=== PATIENT | male | born 1955 | race Two or more races ===

== ENCOUNTER 2017-02-15 12:30 | Outpatient (CLI) | payer MEDICARE, MEDICAID | END 2017-02-15 23:59 | disposition home or self-care (01) | LOC: WOU 12:30 | PROVIDERS: ATTEND Surgery | DX: E11.42 Type 2 diabetes mellitus with diabetic polyneuropathy (principal); Z87.891 Personal history of nicotine dependence; E03.9 Hypothyroidism, unspecified; I10 Essential (primary) hypertension; Z79.4 Long term (current) use of insulin; Z79.02 Long term (current) use of antithrombotics/antiplatelets; R23.8 Other skin changes; E66.9 Obesity, unspecified; Z68.41 Body mass index [BMI] 40.0-44.9, adult | CPT/HCPCS: G0463 ==

== ENCOUNTER 2017-02-16 14:30 | Outpatient (CLI) | payer MEDICARE, MEDICAID | END 2017-02-16 23:59 | disposition home or self-care (01) | LOC: WOU 14:30 | PROVIDERS: ATTEND Surgery | DX: R60.0 Localized edema (principal); I70.203 Unspecified atherosclerosis of native arteries of extremities, bilateral legs | CPT/HCPCS: 93970-TC ==

== ENCOUNTER 2017-03-11 10:30 | Outpatient (CLI) | payer MEDICARE, MEDICAID | END 2017-03-11 23:59 | disposition home or self-care (01) | LOC: WOU 10:30 | PROVIDERS: ATTEND Podiatrist Foot & Ankle Surgery | DX: I87.2 Venous insufficiency (chronic) (peripheral) (principal); R60.0 Localized edema; I10 Essential (primary) hypertension; E03.9 Hypothyroidism, unspecified; E78.2 Mixed hyperlipidemia; E13.40 Other specified diabetes mellitus with diabetic neuropathy, unspecified | CPT/HCPCS: G0463 ==

== ENCOUNTER 2017-04-19 11:30 | Outpatient (CLI) | payer MEDICARE, MEDICAID | END 2017-04-19 23:59 | disposition home or self-care (01) | LOC: WOU 11:30 | PROVIDERS: ATTEND Podiatrist Foot & Ankle Surgery | DX: I87.313 Chronic venous hypertension (idiopathic) with ulcer of bilateral lower extremity (principal); L97.822 Non-pressure chronic ulcer of other part of left lower leg with fat layer exposed; L97.812 Non-pressure chronic ulcer of other part of right lower leg with fat layer exposed; Z86.73 Personal history of transient ischemic attack (TIA), and cerebral infarction without residual deficits; I10 Essential (primary) hypertension; E11.40 Type 2 diabetes mellitus with diabetic neuropathy, unspecified; Z87.891 Personal history of nicotine dependence; E03.9 Hypothyroidism, unspecified; Z79.4 Long term (current) use of insulin; Z79.02 Long term (current) use of antithrombotics/antiplatelets; R60.0 Localized edema | CPT/HCPCS: 11042; A6402; A6452 ==

== ENCOUNTER 2017-04-26 12:00 | Outpatient (CLI) | payer MEDICARE, MEDICAID | END 2017-04-26 23:59 | disposition home or self-care (01) | LOC: WOU 12:00 | PROVIDERS: ATTEND Surgery | DX: I87.312 Chronic venous hypertension (idiopathic) with ulcer of left lower extremity (principal); L97.822 Non-pressure chronic ulcer of other part of left lower leg with fat layer exposed; R60.0 Localized edema; E78.5 Hyperlipidemia, unspecified; E11.39 Type 2 diabetes mellitus with other diabetic ophthalmic complication; Z86.73 Personal history of transient ischemic attack (TIA), and cerebral infarction without residual deficits; E11.40 Type 2 diabetes mellitus with diabetic neuropathy, unspecified; Z79.4 Long term (current) use of insulin; Z79.02 Long term (current) use of antithrombotics/antiplatelets; Z79.899 Other long term (current) drug therapy | CPT/HCPCS: 11042; A6402; A6452 ==

== ENCOUNTER 2017-05-06 12:15 | Outpatient (CLI) | payer MEDICARE, MEDICAID | END 2017-05-06 23:59 | disposition home or self-care (01) | LOC: WOU 12:15 | PROVIDERS: ATTEND Podiatrist Foot & Ankle Surgery | DX: I87.312 Chronic venous hypertension (idiopathic) with ulcer of left lower extremity (principal); L97.822 Non-pressure chronic ulcer of other part of left lower leg with fat layer exposed; E11.9 Type 2 diabetes mellitus without complications; R60.0 Localized edema; E03.9 Hypothyroidism, unspecified; I10 Essential (primary) hypertension; E78.5 Hyperlipidemia, unspecified; Z79.84 Long term (current) use of oral hypoglycemic drugs; Z79.02 Long term (current) use of antithrombotics/antiplatelets | CPT/HCPCS: 11042; A6402; A6452 ==

== ENCOUNTER 2017-06-03 12:56 | Outpatient (CLI) | payer MEDICARE, MEDICAID | END 2017-06-03 23:59 | disposition home health service (06) | LOC: WOU 12:56 | PROVIDERS: ATTEND Podiatrist Foot & Ankle Surgery | DX: I87.2 Venous insufficiency (chronic) (peripheral) (principal); R60.0 Localized edema; L60.3 Nail dystrophy; E11.40 Type 2 diabetes mellitus with diabetic neuropathy, unspecified; E78.5 Hyperlipidemia, unspecified; I10 Essential (primary) hypertension; Z86.73 Personal history of transient ischemic attack (TIA), and cerebral infarction without residual deficits; E03.9 Hypothyroidism, unspecified; Z79.4 Long term (current) use of insulin; Z79.899 Other long term (current) drug therapy; Z87.891 Personal history of nicotine dependence | CPT/HCPCS: G0463 ==

== ENCOUNTER 2017-06-19 16:06 | Inpatient (IN) | payer MEDICARE, MEDICAID ==
[~2017-06-19] VITALS: Ht 172.7 cm; Wt 115.5 kg
--- NOTE | 2017-06-19 16:22 | NUR ---
pt rec'd to er via ems pt fell rt [facility] sbrasions accu ck 121 etoh depression 92% ra n/c 2l 99%
--- NOTE | 2017-06-19 16:45 | NUR ---
iv started rt hand 20g ivp labs and cultures drawn sent to lab asa 325 mg po given per md order
[2017-06-19] MEDS ORDERED: ASPIRIN 325 MG TABLET ONE (16:46)
[2017-06-19 16:47] LABS: BASOPHILS % (AUTO) 0.7 % (0.0-2.0); HEMATOCRIT 27 % (39-51); HEMOGLOBIN 9.3 g/dL (13.5-17.5); LYMPHOCYTES # (AUTO) 0.6 /CMM (0.8-4.8); LYMPHOCYTES % (AUTO) 13.2 % (20.0-44.0); MEAN CORPUSCULAR HGB CONC 35 g/dl (31.0-36.0); MEAN CORPUSCULAR VOLUME 89 fL (80-96); MONOCYTES # (AUTO) 0.3 /CMM (0.1-1.30); MONOCYTES % (AUTO) 5.9 % (2.0-12.0); NEUTROPHILS # (AUTO) 3.8 /CMM (1.8-8.9); NEUTROPHILS % (AUTO) 78.2 % (43.0-81.0); PLATELET COUNT (AUTO) 252 /CMM (150-450); RDW COEFFICIENT OF VARIATION 14.7 (11.5-15.0); RED BLOOD CELL COUNT(AUTO) 2.99 MIL/uL (4.5-6.0); WHITE BLOOD COUNT (AUTO) 4.8 K/uL (4.3-11.0)
[2017-06-19 16:58] LABS: CALCIUM, SERUM 8.3 mg/dL (8.5-10.1); CREATININE 2.2 mg/dL (0.6-1.3); POTASSIUM 4.9 mmol/L (3.5-5.1)
[2017-06-19] MEDS ORDERED: ASPIRIN 325 MG TABLET PO ONE (17:00)
[2017-06-19 17:01] LABS: INR 1.16 (0.85-1.15)
[2017-06-19 17:05] LABS: TROPONIN I 0.143 ng/mL (0.00-0.056)
[2017-06-19 17:13] LABS: ALBUMIN 3.6 g/dL (3.4-5.0); BILIRUBIN,DIRECT 0.3 mg/dL (0.0-0.2); BILIRUBIN,TOTAL 0.6 mg/dL (0.2-1.0); TOTAL PROTEIN, SERUM 7.5 g/dL (6.4-8.2)
--- NOTE | 2017-06-19 17:31 | NUR ---
CALLED NURSING SUP. FOR TELE BED
[2017-06-19] MEDS ORDERED: METF-440 PO (17:48)
[2017-06-19] MEDS ORDERED: FERR325T24 PO (17:48)
[2017-06-19] MEDS ORDERED: NITR0.4T48 SL (17:48)
[2017-06-19] MEDS ORDERED: TRAZ-214 PO (17:48)
[2017-06-19] MEDS ORDERED: FENO145T35 PO (17:48)
[2017-06-19] MEDS ORDERED: LEVO75TA7 PO (17:48)
[2017-06-19] MEDS ORDERED: FURO40TA5 PO (17:48)
[2017-06-19] MEDS ORDERED: CLOP75TA15 PO (17:48)
[2017-06-19] MEDS ORDERED: ATOR40TA PO (17:48)
[2017-06-19] MEDS ORDERED: ALBU18HF2 IH (17:48)
[2017-06-19] MEDS ORDERED: INSU100V7 SQ (17:48)
[2017-06-19] MEDS ORDERED: CARV12.52 PO (17:48)
[2017-06-19] MEDS ORDERED: HYDR100T27 PO (17:48)
[2017-06-19] MEDS ORDERED: FOLI0.8T2 PO (17:48)
[2017-06-19] MEDS ORDERED: BLOO-668 IN (17:48)
[2017-06-19] MEDS ORDERED: AMLO10TA6 PO (17:48)
[2017-06-19] MEDS ORDERED: ALLO100T PO (17:48)
--- NOTE | 2017-06-19 17:55 | NUR ---
TELE 310-1
--- NOTE | 2017-06-19 18:16 | NUR ---
PT SLEEPING RESP EVEN UNLABORED VSS CONT TO MONITOR CALLED REPROT TO FLOOR [place] . PT STABLE FOR TRANSFER VSS
[2017-06-19] MEDS ORDERED: FUROSEMIDE 40 MG/4 ML VIAL IV ONE (18:30)
[2017-06-19] MEDS ORDERED: *INSULIN REGULAR(HUMULIN R)HUM 100 UNIT/ML VIAL SQ PRN (18:30)
[2017-06-19] MEDS ORDERED: MAGNESIUM HYDROXIDE 30 ML UDC PO PRN (18:30)
[2017-06-19] MEDS ORDERED: DEXTROSE 50%-WATER 50 ML DISP.SYRIN IV PRN (18:30)
[2017-06-19] MEDS ORDERED: LORAZEPAM 0.5 MG TABLET PO PRN (18:30)
[2017-06-19] MEDS ORDERED: HYDROCODONE/APAP 5/325MG 1 EACH TABLET PO PRN (18:30)
[2017-06-19] MEDS ORDERED: ZOLPIDEM TARTRATE 5 MG TABLET PO PRN (18:30)
[2017-06-19] MEDS ORDERED: Z GUARD REMEDY 2 OZ OINT TP PRN (18:30)
[2017-06-19] MEDS ORDERED: MAG HYDROX/AL HYDROX/SIMETH 30 ML UDC PO PRN (18:30)
[2017-06-19] MEDS ORDERED: ONDANSETRON HCL/PF 4 MG/2 ML VIAL IVP PRN (18:30)
[2017-06-19] MEDS ORDERED: ACETAMINOPHEN 325 MG TABLET PO PRN (18:30)
[2017-06-19] MEDS: hydrALAZINE HCL 50 MG TABLET PO SCH (19:00)
[2017-06-19 19:18] VITALS: BP 134/78
[2017-06-19 20:00] VITALS: BP 139/75
--- NOTE | 2017-06-19 20:00 | NUR ---
TELE/RN OPENING NOTES PT RECEIVED AWAKE, A/OX3. ON ROOM AIR, BREATHING EVEN AND UNLABORED. DENIES SOB OR CHEST PAIN AT THIS TIME. IV TO RIGHT HAND PATENT AND INTACT. ORIENTED PT TO ROOM AND CALL LIGHT. BED IN LOW/LOCKED POSITION WITH CALL LIGHT IN REACH. SIDE RAILS UPX2. WILL CONTINUE TO MONITOR
[2017-06-19] MEDS ORDERED: FUROSEMIDE 40 MG/4 ML VIAL ONE (20:51)
[2017-06-19] MEDS: ATORVASTATIN 40 MG TABLET PO SCH (20:56)
[2017-06-19] MEDS: NITROGLYCERIN PACKET 1 GM PACKET TOP SCH (20:57)
[2017-06-19] MEDS ORDERED: ENOXAPARIN SODIUM 40 MG/0.4 ML DISP.SYRIN SQ SCH (21:00)
--- NOTE | 2017-06-19 21:00 | NUR ---
TELE/RN NOTES PT WITH PEPPER SPRAY AND TASER/FLASHLIGHT. PLACED IN PLASTIC BAG WITH PT'S STICKER, AND LOCKED IN THE CHARGE NURSE'S SAFE. ADDED TO BELONGINGS LIST. PER DAY SHIFT RN, $325 AND VISA CARD SEND DOWN TO NURSING MINE ENVIRONMENTAL ENGINEER SAFE.
[2017-06-19] MEDS: BLOOD SUGAR DIAGNOSTIC 1 EACH STRIP VI SCH (22:19)
[2017-06-20] VITALS: BP 121/58
--- NOTE | 2017-06-20 00:13 | NUR ---
TELE/RN NOTES NOTIFIED DR. ROGERS ABOUT 2ND TROPONIN RESULTS OF 0.146 TRENDING UP FROM 0.143. MADE AWARE THAT PT IS ON PLAVIX 75MG DAILY AND LOVENOX 40MG Q24H. DENIES CP, NSR/SB ON THE MONITOR. NO NEW ORDERS AT THIS TIME. DR. SUE VERONICAAY TO ORDER LIPID PANEL WITH AM LABS PER CORE MEASURE PROTOCOL.
[2017-06-20 04:00] VITALS: BP 135/66
[2017-06-20] MEDS: NITROGLYCERIN PACKET 1 GM PACKET TOP SCH (05:56)
[2017-06-20 06:45] LABS: CALCIUM, SERUM 7.8 mg/dL (8.5-10.1); CREATININE 2.1 mg/dL (0.6-1.3); MAGNESIUM 2.9 mg/dL (1.8-2.4); PHOSPHORUS 4.2 mg/dL (2.5-4.9); POTASSIUM 4.7 mmol/L (3.5-5.1)
--- NOTE | 2017-06-20 07:00 | NUR ---
TELE OPENING NOTES. PT RECEIVED A&0X3, AWAKE AND RESTING IN BED. PT TELE: SB 60. PT NPO R/T: RV BY CARDIOLOGY. PT WITH O2 VIA NC AT 2LPM, SAO2 WNL AT 97%. PT DENIES SOB OR RESP DISTRESS. PT DENIES PAIN. PT WITH IVC AT R HAND G#2O INTACT AND SALINE FLUSH PATENT, PT BED IN LOWEST LOCKED POSITION WITH HANDRAILSX2 AND CALL ROCHE WITHIN REACH. PT BRIEFED ON TODAY'S POC AND IS WITHOUT CONCERN OR COMPLAINT AT THIS TIME.
[2017-06-20] MEDS: BLOOD SUGAR DIAGNOSTIC 1 EACH STRIP VI SCH ×4 (07:03→21:18)
--- NOTE | 2017-06-20 07:30 | NUR ---
BLOCK MACHINE OPERATOR NOTES. PT OK'D TO CONT. DIET BY CARDIOLOGY MD KHAN.
--- NOTE | 2017-06-20 07:32 | NUR ---
TELE/RN CLOSING NOTES PT RESTING COMFORTABLY IN BED. A/OX3. ON/OFF NC 2L. BREATHING EVEN AND UNLABORED. DENIES SOB OR CHEST PAIN AT THIS TIME. NO N/V NOTED. IV TO RIGHT HAND PATENT AND INTACT. NO SIGNIFICANT CHANGES OVERNIGHT, ALL NEEDS MET. KEPT PT COMFORTABLE DURING SHIFT. PT CURRENTLY NPO FOR CARDIO EVAL. PT AWARE AND VERBALIZES UNDERSTANDING. BED REMAINS IN LOW/LOCKED POSITION WITH CALL LIGHT IN REACH. SIDE RAILS UPX2. ENDORSED TO DAY SHIFT LOPEZ MARC. Addendum: 06/20/17 at 0735 by BARRINGTON KESSLER RN ON TELE MONITOR SHOWING SINUS RHYTHM WITH HR 60 Addendum: 06/20/17 at 0741 by BARRINGTON KESSLER RN SADIE DE LA CRUZ ([facility])= [phone]
[2017-06-20 07:51] LABS: HEMATOCRIT 26 % (39-51); HEMOGLOBIN 8.8 g/dL (13.5-17.5); MEAN CORPUSCULAR VOLUME 90 fL (80-96); RED BLOOD CELL COUNT(AUTO) 2.91 MIL/uL (4.5-6.0); WHITE BLOOD COUNT (AUTO) 4.1 K/uL (4.3-11.0)
[2017-06-20 07:52] LABS: MEAN CORPUSCULAR HGB CONC 34 g/dl (31.0-36.0); NEUTROPHILS % (AUTO) 72.7 % (43.0-81.0); PLATELET COUNT (AUTO) 193 /CMM (150-450); RDW COEFFICIENT OF VARIATION 15.4 (11.5-15.0)
[2017-06-20 07:53] LABS: BASOPHILS % (AUTO) 0.4 % (0.0-2.0); EOSINOPHILS % (AUTO) 2.1 % (0.0-6.0); LYMPHOCYTES # (AUTO) 0.6 /CMM (0.8-4.8); LYMPHOCYTES % (AUTO) 15.9 % (20.0-44.0); MONOCYTES # (AUTO) 0.4 /CMM (0.1-1.30); MONOCYTES % (AUTO) 8.9 % (2.0-12.0); NEUTROPHILS # (AUTO) 2.9 /CMM (1.8-8.9)
[2017-06-20 08:00] VITALS: BP 140/69
[2017-06-20 08:30] LABS: THYROID STIMULATING HORMONE 2.605 uIU/mL (0.358-3.74)
[2017-06-20] MEDS: LEVOTHYROXINE SODIUM 75 MCG TABLET PO SCH (08:44)
[2017-06-20] MEDS: PANTOPRAZOLE 40 MG TABLET.DR PO SCH (08:45)
[2017-06-20] MEDS: CLOPIDOGREL BISULFATE 75 MG TABLET PO SCH (08:46)
[2017-06-20] MEDS: ALLOPURINOL 100 MG TABLET PO SCH (08:47)
[2017-06-20] MEDS: FENOFIBRATE NANOCRYS (145 MG) 145 MG TABLET PO SCH (08:48)
[2017-06-20] MEDS: THIAMINE HCL 100 MG TABLET PO SCH (08:48)
[2017-06-20] MEDS: ASPIRIN 325 MG TABLET PO SCH (08:48)
[2017-06-20] MEDS: hydrALAZINE HCL 50 MG TABLET PO SCH ×2 (08:48→16:59)
[2017-06-20] MEDS: VIT B CMPLX 3/FA/VIT C/BIOTIN 1 TAB TABLET PO SCH (08:48)
[2017-06-20] MEDS: ISOSORBIDE DINITRATE (20MG) 20 MG TABLET PO SCH ×2 (08:49→17:01)
[2017-06-20] MEDS: CARVEDILOL 12.5 MG TABLET PO SCH ×2 (08:49→17:00)
[2017-06-20] MEDS: HEPARIN SODIUM, PORCINE 5000 UNITS/1 ML VIAL SQ SCH ×2 (08:51→21:18)
[2017-06-20] MEDS ORDERED: FERROUS SULFATE (325 MG) 325 MG/TAB TABLET PO SCH (09:00)
[2017-06-20] MEDS ORDERED: AMLODIPINE BESYLATE 10 MG TABLET PO SCH (09:00)
[2017-06-20] MEDS: INSULIN REGULAR, HUMAN 100 UNIT/ML 3 ML VIAL SQ PRN ×2 (12:34→17:07)
[2017-06-20 16:00] VITALS: BP 126/59
--- NOTE | 2017-06-20 16:00 | NUR ---
LAUNDRY BAG PUNCH OPERATOR NOTES. PT NOTES ADDED TO CHART FROM PREVIOUS HOSP. STAY.
[2017-06-20] MEDS: ATORVASTATIN 40 MG TABLET PO SCH (16:58)
--- NOTE | 2017-06-20 18:23 | NUR ---
TELE CLOSING NOTES. PT A&0X3, PT OOB IN CHAIR WITH FAMILY AT BEDSIDE. PT TELE: SB 66. PT TOLERATING ROOM AIR WITHOUT SOB OR RESP DISTRESS AND DENIES DENIES PAIN. PT IVC AT R HAND G#2O INTACT AND SL. PT BED IN LOWEST LOCKED POSITION WITH HANDRAILSX2 AND CALL ROCHE WITHIN REACH. ALL DAY NURSE DUTIES ATTENDED TO AND PT AND IS WITHOUT CONCERN OR COMPLAINT AT THIS TIME. PT TO BE NPO POST MIDNIGHT TONIGHT R/ NA SCAN, CONSENT SIGNED. WILL ENDORSE TO NIGHT NURSE AT BEDSIDE FOR MARC.
--- NOTE | 2017-06-20 19:40 | NUR ---
PIPE MACHINE OPERATOR INITIAL NOTE PT IS IN BED SLEEPING, EASILY AROUSED. TELE MONITOR SHOWS SR 69. NO SIGNS OF SOB OR DISTRESS, BREATHING EVENLY AND UNLABORED ON RA. DENIES PAIN AT THIS TIME. IV ACCESS IS INTACT AND PATENT. BILATERAL LOWER EXTREMITY WEEPING EDEMA NOTED. BED IS IN LOW AND LOCKED POSITION, CALL LIGHT WITHIN REACH. WILL CONTINUE TO MONITOR PT
[2017-06-20 20:00] VITALS: BP 125/59
[2017-06-21] VITALS: BP 136/64
[2017-06-21 01:54] LABS: APPEARANCE,URINE CLEAR (CLEAR); BILIRUBIN,URINE NEGATIVE (NEGATIVE); BLOOD, URINE TRACE Ery/uL (NEGATIVE); COLOR,URINE YELLOW (YELLOW); KETONES,URINE NEGATIVE (NEGATIVE); LEUKOCYTE ESTERASE ,URINE NEGATIVE (NEGATIVE); NITRITE, URINE NEGATIVE (NEGATIVE); PH,URINE 5.5 (5.0-8.0); PROTEIN,URINE NEGATIVE (NEGATIVE); UGLUCOSE 3+ mg/dL (NEGATIVE); UROBILINOGEN,URINE 0.2 EU/dL (0.2)
[2017-06-21 02:05] LABS: CREATININE, URINE 43.5 MG/DL (30.0-125.0); URINE TOTAL PROTEIN 16.9 mg/dL (0-11.9)
[2017-06-21 02:06] LABS: RBC,URINE 0-2 /HPF (0-2); WBC,URINE 0-2 /HPF (0-3)
[2017-06-21 02:07] LABS: BACTERIA,URINE None seen /HPF (None Seen); SQUAMOUS EPITHELIAL CELL,UR Few /HPF (None Seen)
[2017-06-21 02:21] LABS: EOSINOPHIL,URINE None Seen
[2017-06-21 04:00] VITALS: BP 121/53
[2017-06-21] MEDS: BLOOD SUGAR DIAGNOSTIC 1 EACH STRIP VI SCH ×4 (05:43→21:11)
[2017-06-21 06:29] LABS: BASOPHILS % (AUTO) 0.6 % (0.0-2.0); EOSINOPHILS % (AUTO) 4.2 % (0.0-6.0); HEMATOCRIT 27 % (39-51); HEMOGLOBIN 8.9 g/dL (13.5-17.5); LYMPHOCYTES # (AUTO) 0.7 /CMM (0.8-4.8); LYMPHOCYTES % (AUTO) 13.2 % (20.0-44.0); MEAN CORPUSCULAR HGB CONC 33 g/dl (31.0-36.0); MEAN CORPUSCULAR VOLUME 91 fL (80-96); MONOCYTES # (AUTO) 0.5 /CMM (0.1-1.30); NEUTROPHILS # (AUTO) 3.6 /CMM (1.8-8.9); PLATELET COUNT (AUTO) 206 /CMM (150-450); RDW COEFFICIENT OF VARIATION 15.6 (11.5-15.0); RED BLOOD CELL COUNT(AUTO) 2.97 MIL/uL (4.5-6.0)
--- NOTE | 2017-06-21 06:38 | NUR ---
HULLER OPERATOR CLOSING NOTE PT IS IN BED AWAKE AND ALERT, ABLE TO MAKE NEEDS KNOWN. NPO SINCE MIDNIGHT PENDING LEXISCAN. NO SIGNS OF SOB OR DISTRESS, BREATHING EVENLY AND UNLABORED ON RA. DENIES PAIN AT THIS TIME. BED IS IN LOW AND LOCKED POSITION, CALL LIGHT WITHIN REACH. WILL ENDORSE TO DAYSHIFT.
[2017-06-21 06:47] LABS: ALBUMIN 3.3 g/dL (3.4-5.0); CALCIUM, SERUM 8.3 mg/dL (8.5-10.1); CREATININE 1.9 mg/dL (0.6-1.3); MAGNESIUM 2.9 mg/dL (1.8-2.4); PHOSPHORUS 3.2 mg/dL (2.5-4.9); POTASSIUM 4.7 mmol/L (3.5-5.1); TOTAL PROTEIN, SERUM 7.1 g/dL (6.4-8.2)
[2017-06-21 06:49] LABS: TROPONIN I 0.158 ng/mL (0.00-0.056)
--- NOTE | 2017-06-21 07:20 | NUR ---
TELE/RN OPENING NOTE PATIENT ALERT AND ORIENTED X3. DENIES SOB. RESPIRATION REGULAR AND UNLABORED. DENIES PAIN. PATIENT SR WITH HR 61. PATIENT IN NO APPARENT DISTRESS. RIGHT HAND G 20 PATENT AND SALINE LOCKED. CONTINENT ON BOWEL AND BLADDER. ABDOMEN SOFT AND NON-DISTENDED. PATIENT NPO FOR DIAGNOSIS REASON. BED LOW AND LOCKED. SIDE RAILS UP X2. CALL LIGHT WITHIN REACH. WILL CONTINUE TO MONITOR.
[2017-06-21 08:00] VITALS: BP 128/59
[2017-06-21] MEDS ORDERED: REGADENOSON 0.4 MG/5 ML DISP.SYRIN IVP ONE (09:00)
[2017-06-21] MEDS ORDERED: BUMETANIDE INJ 8 MG in IV NS 0.9% 48 ML IV ONE (09:00)
[2017-06-21] MEDS: FENOFIBRATE NANOCRYS (145 MG) 145 MG TABLET PO SCH (10:57)
[2017-06-21] MEDS: THIAMINE HCL 100 MG TABLET PO SCH (10:57)
[2017-06-21] MEDS: CLOPIDOGREL BISULFATE 75 MG TABLET PO SCH (10:57)
[2017-06-21] MEDS: ALLOPURINOL 100 MG TABLET PO SCH (10:57)
[2017-06-21] MEDS: VIT B CMPLX 3/FA/VIT C/BIOTIN 1 TAB TABLET PO SCH (10:57)
[2017-06-21] MEDS: ASPIRIN 325 MG TABLET PO SCH (10:57)
[2017-06-21] MEDS: LEVOTHYROXINE SODIUM 75 MCG TABLET PO SCH (10:58)
[2017-06-21] MEDS: PANTOPRAZOLE 40 MG TABLET.DR PO SCH (10:58)
[2017-06-21] MEDS: ISOSORBIDE DINITRATE (20MG) 20 MG TABLET PO SCH ×2 (10:59→18:02)
[2017-06-21] MEDS: hydrALAZINE HCL 50 MG TABLET PO SCH ×2 (10:59→18:01)
[2017-06-21] MEDS: CARVEDILOL 12.5 MG TABLET PO SCH ×2 (10:59→18:03)
[2017-06-21] MEDS: HEPARIN SODIUM, PORCINE 5000 UNITS/1 ML VIAL SQ SCH ×2 (11:00→20:01)
--- NOTE | 2017-06-21 11:10 | NUR ---
MS/RN NOTE PATIENT IS BACK FROM STRESS TEST IN STABLE CONDITION. RESPIRATION REGULAR AND UNLABORED. DENIES SOB, DENIES PAIN AT THIS TIME. PATIENT IN NO APPARENT DISTRESS. ALERT AND ORIENTED X3. MORNING MEDICATIONS GIVEN LATE DUE TO PATIENT WAS NPO. NO ADVERSE SIDE EFFECTS NOTED.
[2017-06-21] MEDS: INSULIN REGULAR, HUMAN 100 UNIT/ML 3 ML VIAL SQ PRN (12:26)
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
[2017-06-21 16:00] VITALS: BP 139/79
[2017-06-21] MEDS: ATORVASTATIN 40 MG TABLET PO SCH (18:00)
--- NOTE | 2017-06-21 18:06 | NUR ---
MS/RN CLOSING NOTE PATIENT ALERT AND ORIENTED X4. DENIES SOB. RESPIRATION REGULAR AND UNLABORED. DENIES PAIN. PATIENT IN NO APPARENT DISTRESS. RIGHT HAND G 20 PATENT AND SALINE LOCKED. BED LOW AND LOCKED. SIDE RAILS UP X2. CALL LIGHT WITHIN REACH. WILL ENDORSE TO SPEECH PATHOLOGY TEACHER.
--- NOTE | 2017-06-21 19:45 | NUR ---
MS RN INITIAL NOTE PT IS AWAKE AND ALERT IN BED, ABLE TO MAKE NEEDS KNOWN. NO SIGNS OF SOB OR DISTRESS, BREATHING EVENLY AND UNLABORED ON RA. DENIES PAIN AT THIS TIME. IV ACCESS IS INTACT AND PATENT. BILATERAL LOWER EXTREMITY WEEPING EDEMA NOTED. BED IS IN LOW AND LOCKED POSITION, CALL LIGHT WITHIN REACH. WILL CONTINUE TO MONITOR PT
[2017-06-21 20:00] VITALS: BP 110/54
[2017-06-22] MEDS: BLOOD SUGAR DIAGNOSTIC 1 EACH STRIP VI SCH ×2 (06:08→11:49)
[2017-06-22] MEDS: INSULIN REGULAR, HUMAN 100 UNIT/ML 3 ML VIAL SQ PRN ×2 (06:09→11:50)
--- NOTE | 2017-06-22 06:37 | NUR ---
MS RN CLOSING NOTE PT IS IN BED AWAKE AND ALERT, ABLE TO MAKE NEEDS KNOWN. NO SIGNS OF SOB OR DISTRESS, BREATHING EVENLY AND UNLABORED ON RA. DENIES PAIN AT THIS TIME. NO ACUTE CHANGES THROUGHOUT THE SHIFT. BED IS IN LOW AND LOCKED POSITION, CALL LIGHT WITHIN REACH. WILL ENDORSE TO DAYSHIFT.
[2017-06-22 06:44] LABS: TROPONIN I 0.156 ng/mL (0.00-0.056)
[2017-06-22 06:46] LABS: ALBUMIN 3.2 g/dL (3.4-5.0); BILIRUBIN,TOTAL 0.6 mg/dL (0.2-1.0); CALCIUM, SERUM 8.7 mg/dL (8.5-10.1); CREATININE 1.6 mg/dL (0.6-1.3); MAGNESIUM 2.1 mg/dL (1.8-2.4); PHOSPHORUS 3.3 mg/dL (2.5-4.9); POTASSIUM 4.6 mmol/L (3.5-5.1); TOTAL PROTEIN, SERUM 6.8 g/dL (6.4-8.2)
[2017-06-22 07:07] LABS: BASOPHILS % (AUTO) 0.6 % (0.0-2.0); EOSINOPHILS % (AUTO) 6.8 % (0.0-6.0); HEMATOCRIT 26 % (39-51); HEMOGLOBIN 8.6 g/dL (13.5-17.5); LYMPHOCYTES # (AUTO) 0.7 /CMM (0.8-4.8); LYMPHOCYTES % (AUTO) 17.3 % (20.0-44.0); MEAN CORPUSCULAR HGB CONC 33 g/dl (31.0-36.0); MEAN CORPUSCULAR VOLUME 92 fL (80-96); MONOCYTES # (AUTO) 0.4 /CMM (0.1-1.30); MONOCYTES % (AUTO) 9.7 % (2.0-12.0); NEUTROPHILS # (AUTO) 2.7 /CMM (1.8-8.9); NEUTROPHILS % (AUTO) 65.6 % (43.0-81.0); PLATELET COUNT (AUTO) 191 /CMM (150-450); RDW COEFFICIENT OF VARIATION 16.1 (11.5-15.0); RED BLOOD CELL COUNT(AUTO) 2.87 MIL/uL (4.5-6.0); WHITE BLOOD COUNT (AUTO) 4.2 K/uL (4.3-11.0)
[2017-06-22 08:00] VITALS: BP 125/83
[2017-06-22] MEDS: VIT B CMPLX 3/FA/VIT C/BIOTIN 1 TAB TABLET PO SCH (08:18)
[2017-06-22] MEDS: FENOFIBRATE NANOCRYS (145 MG) 145 MG TABLET PO SCH (08:18)
[2017-06-22] MEDS: ASPIRIN 325 MG TABLET PO SCH (08:18)
[2017-06-22] MEDS: THIAMINE HCL 100 MG TABLET PO SCH (08:18)
[2017-06-22] MEDS: ALLOPURINOL 100 MG TABLET PO SCH (08:18)
[2017-06-22] MEDS: LEVOTHYROXINE SODIUM 75 MCG TABLET PO SCH (08:18)
[2017-06-22] MEDS: PANTOPRAZOLE 40 MG TABLET.DR PO SCH (08:18)
[2017-06-22] MEDS: CLOPIDOGREL BISULFATE 75 MG TABLET PO SCH (08:18)
[2017-06-22] MEDS: ISOSORBIDE DINITRATE (20MG) 20 MG TABLET PO SCH (08:19)
[2017-06-22] MEDS: CARVEDILOL 12.5 MG TABLET PO SCH (08:19)
[2017-06-22] MEDS: hydrALAZINE HCL 50 MG TABLET PO SCH (08:19)
[2017-06-22] MEDS: HEPARIN SODIUM, PORCINE 5000 UNITS/1 ML VIAL SQ SCH (08:20)
--- NOTE | 2017-06-22 08:21 | NUR ---
WOUND CARE CONSULT WOUND CARE RECEIVED CONSULT FOR BILATERAL LEG REDNESS/EDEMA/BLISTERING. WOUND CARE WILL DEFER CONSULT AND ALL TREATMENT PLANS TO SURGICAL TEAM AT THIS TIME. PATIENT WITH STEPHANIA AT 19.
[2017-06-22] MEDS ORDERED: NEOMY SULF/BACITRAC ZN/POLY 15 GM TUBE TP SCH (09:00)
[2017-06-22] MEDS ORDERED: FUROSEMIDE 40 MG TABLET PO SCH (10:00)
[2017-06-22 14:20] LABS: PTH, INTACT 36 pg/mL (15-65)
[2017-06-22 16:00] VITALS: BP 129/63
--- NOTE | 2017-06-22 17:20 | NUR ---
M/S RN - Discharge Patient feeling better, discharged home in stable condition. Reviewed discharge instructions with patient and brother Bhavik, both verbalized full understanding of all teachings including medication management and f/u care with his PMD on , 06/24/17. Continue home meds as ordered, diabetic education was also provided. All belongings with pt and he denies any missing items. VSS, denies chest pain, no c/o SOB, tolerating room air, no apparent distress seen. Heplock removed on the right hand with catheter tip intact, no redness and no swelling noted at the site. Patient refused photo to be taken on his skin breakdown. Discharge papers signed and copy was given per protocol. Accompanied to the lobby via wheelchair and transported by taxi.
[2017-06-23 07:08] LABS: *SPE A/G RATIO 1.2 (0.7-1.7); *SPE ALBUMIN 3.6 g/dL (2.9-4.4); *SPE ALPHA-1-GLOBULIN 0.3 g/dL (0.0-0.4); *SPE ALPHA-2-GLOBULIN 0.6 g/dL (0.4-1.0); *SPE BETA GLOBULIN 0.9 g/dL (0.7-1.3); *SPE M-SPIKE Not Observed g/dL (Not Observed); *SPEGAMMA GLOBULIN 1.3 g/dL (0.4-1.8)
[2017-06-23 09:27] LABS: CALCITRIOL VIT D,1, 25 DIHYDRO 40.5 pg/mL (19.9-79.3)
== END 2017-06-22 18:10 | disposition home or self-care (01) | DRG 280 ==
LOC: ER 16:10 → TELE 18:19 → MED 06-21 08:23
PROVIDERS: ADMIT Internal Medicine; ATTEND Internal Medicine
DX: I21.4 Non-ST elevation (NSTEMI) myocardial infarction (principal); E43 Unspecified severe protein-calorie malnutrition; N17.9 Acute kidney failure, unspecified; I13.0 Hypertensive heart and chronic kidney disease with heart failure and stage 1 through stage 4 chronic kidney disease, or unspecified chronic kidney disease; E11.22 Type 2 diabetes mellitus with diabetic chronic kidney disease; F10.129 Alcohol abuse with intoxication, unspecified; I11.0 Hypertensive heart disease with heart failure; E11.42 Type 2 diabetes mellitus with diabetic polyneuropathy; Z79.4 Long term (current) use of insulin; Z79.84 Long term (current) use of oral hypoglycemic drugs; Z79.899 Other long term (current) drug therapy; E78.5 Hyperlipidemia, unspecified; E66.01 Morbid (severe) obesity due to excess calories; N18.9 Chronic kidney disease, unspecified; E03.9 Hypothyroidism, unspecified; I25.2 Old myocardial infarction; J44.9 Chronic obstructive pulmonary disease, unspecified; Z79.82 Long term (current) use of aspirin; Z79.02 Long term (current) use of antithrombotics/antiplatelets; M10.9 Gout, unspecified; D64.9 Anemia, unspecified; E61.1 Iron deficiency; S80.212A Abrasion, left knee, initial encounter; X58.XXXA Exposure to other specified factors, initial encounter; Y92.9 Unspecified place or not applicable
CPT/HCPCS: 36415; 71045-TC; 76770-TC; 80048-TC; 80053-TC; 80061-TC; 80076-TC; 81000-TC; 82306; 82550-TC; 82570-TC; 82652; 82728-TC; 82962-TC; 83540-TC; 83735-TC; 83880; 83970; 84100-TC; 84155; 84155-TC; 84165; 84300-TC; 84439-TC; 84443-TC; 84484-TC; 84550-TC; 85025-TC; 85730-TC; 87040-TC; 87081-TC; 93307-TC; A4216; A4606; A9502; G0480; J1644; J1650; J1815; J1940; J2785; J3490; J7030; Z7610

== ENCOUNTER 2017-06-24 11:43 | Outpatient (CLI) | payer MEDICARE, MEDICAID ==
[~2017-06-24 11:43] MED LIST: ALBU18HF2 IH; ALLO100T PO; AMLO10TA6 PO; ATOR40TA PO; BLOO-668 IN; CARV12.52 PO; CLOP75TA15 PO; FENO145T35 PO; FERR325T24 PO; FOLI0.8T2 PO; FURO40TA5 PO; HYDR100T27 PO; INSU100V7 SQ; LEVO75TA7 PO; METF-440 PO; NITR0.4T48 SL; TRAZ-214 PO
[2017-06-24 12:47] VITALS: BP 109/63
== END 2017-06-24 23:59 | disposition home or self-care (01) ==
LOC: MSC 11:43
PROVIDERS: ATTEND Internal Medicine
DX: F10.11 Alcohol abuse, in remission (principal); E11.22 Type 2 diabetes mellitus with diabetic chronic kidney disease; I12.9 Hypertensive chronic kidney disease with stage 1 through stage 4 chronic kidney disease, or unspecified chronic kidney disease; N18.9 Chronic kidney disease, unspecified; Z79.4 Long term (current) use of insulin; E78.5 Hyperlipidemia, unspecified; E66.01 Morbid (severe) obesity due to excess calories; E43 Unspecified severe protein-calorie malnutrition; E03.9 Hypothyroidism, unspecified; J44.9 Chronic obstructive pulmonary disease, unspecified; M10.9 Gout, unspecified

== ENCOUNTER 2017-06-24 13:00 | Outpatient (CLI) | payer MEDICARE, MEDICAID | END 2017-06-24 23:59 | disposition home health service (06) | LOC: WOU 13:00 | PROVIDERS: ATTEND Podiatrist Foot & Ankle Surgery | DX: I87.313 Chronic venous hypertension (idiopathic) with ulcer of bilateral lower extremity (principal); L97.812 Non-pressure chronic ulcer of other part of right lower leg with fat layer exposed; L97.929 Non-pressure chronic ulcer of unspecified part of left lower leg with unspecified severity; S81.012A Laceration without foreign body, left knee, initial encounter; X58.XXXA Exposure to other specified factors, initial encounter; Y92.89 Other specified places as the place of occurrence of the external cause; L60.3 Nail dystrophy; Z87.891 Personal history of nicotine dependence; E11.40 Type 2 diabetes mellitus with diabetic neuropathy, unspecified; R60.0 Localized edema | CPT/HCPCS: 11042; 11045; A6209; A6402; A6452 ==

== ENCOUNTER 2017-09-09 16:23 | Inpatient (IN) | payer MEDICARE, MEDICAID ==
[~2017-09-09] VITALS: Ht 175.3 cm; Wt 73.5 kg
--- NOTE | 2017-09-09 16:30 | NUR ---
FROM WOUND CARE CENTER: DISTENDED ABDOMEN ~ 1 MONTH. A/OX 4, BREATHING EVEN AND UNLABORED. NO SOB, NAD, VITALS STABLE. SAFETY AND COMFORT MEASURES IN PLACE. AWAITING MD ORDERS.
--- NOTE | 2017-09-09 17:42 | NUR ---
NEW IV STARTED ON RIGHT HAND, 20G. BLOOD DRAWN AND SENT TO LAB.
[2017-09-09 17:49] LABS: BASOPHILS # (AUTO) 0.2 /CMM (0.0-0.2); BASOPHILS % (AUTO) 3.4 % (0.0-2.0); EOSINOPHILS % (AUTO) 6.1 % (0.0-6.0); HEMATOCRIT 25 % (39-51); HEMOGLOBIN 8.5 g/dL (13.5-17.5); LYMPHOCYTES # (AUTO) 0.7 /CMM (0.8-4.8); LYMPHOCYTES % (AUTO) 9.9 % (20.0-44.0); MEAN CORPUSCULAR HEMOGLOBIN 29 PG (26.0-33.0); MEAN CORPUSCULAR HGB CONC 33 g/dl (31.0-36.0); MEAN CORPUSCULAR VOLUME 87 fL (80-96); MONOCYTES # (AUTO) 0.7 /CMM (0.1-1.30); MONOCYTES % (AUTO) 10.4 % (2.0-12.0); NEUTROPHILS # (AUTO) 4.7 /CMM (1.8-8.9); NEUTROPHILS % (AUTO) 70.2 % (43.0-81.0); PLATELET COUNT (AUTO) 320 /CMM (150-450); RDW COEFFICIENT OF VARIATION 15.5 (11.5-15.0); RED BLOOD CELL COUNT(AUTO) 2.92 MIL/uL (4.5-6.0); WHITE BLOOD COUNT (AUTO) 6.7 K/uL (4.3-11.0)
[2017-09-09 18:02] LABS: CALCIUM, SERUM 8.4 mg/dL (8.5-10.1); CREATININE 2.1 mg/dL (0.6-1.3); POTASSIUM 4.4 mmol/L (3.5-5.1)
[2017-09-09 18:06] LABS: INR 1.16 (0.85-1.15)
[2017-09-09 18:15] LABS: ALBUMIN 2.8 g/dL (3.4-5.0); BILIRUBIN,DIRECT 0.4 mg/dL (0.0-0.2); BILIRUBIN,TOTAL 0.7 mg/dL (0.2-1.0); TOTAL PROTEIN, SERUM 7.1 g/dL (6.4-8.2)
[2017-09-09] MEDS ORDERED: FUROSEMIDE 40 MG/4 ML VIAL IV ONE (18:30)
--- NOTE | 2017-09-09 18:30 | NUR ---
URINE OBTAINED AND SENT TO LAB.
[2017-09-09] MEDS ORDERED: FUROSEMIDE 40 MG/4 ML VIAL ONE (18:31)
--- NOTE | 2017-09-09 18:40 | NUR ---
PATIENT MEDICATED PER MD ORDERS.
[2017-09-09 18:48] LABS: APPEARANCE,URINE Slightly Cloudy (CLEAR); BILIRUBIN,URINE Negative (NEGATIVE); BLOOD, URINE Negative Ery/uL (NEGATIVE); COLOR,URINE Yellow (YELLOW); KETONES,URINE Negative (NEGATIVE); LEUKOCYTE ESTERASE ,URINE Negative (NEGATIVE); NITRITE, URINE Negative (NEGATIVE); PH,URINE 5.5 (5.0-8.0); PROTEIN,URINE 30 mg/dl (NEGATIVE); UGLUCOSE Negative (NEGATIVE)
[2017-09-09 18:58] LABS: BACTERIA,URINE Rare /HPF (None Seen); RBC,URINE NONE SEEN /HPF (0-2); SQUAMOUS EPITHELIAL CELL,UR Few /HPF (None Seen); WBC,URINE NONE SEEN /HPF (0-3)
[2017-09-09] MEDS ORDERED: CEFTRIAXONE 1GM BAG (ER ONLY) 50 ML IV ONE (19:00)
[2017-09-09] MEDS: CEFTRIAXONE 1GM BAG (ER ONLY) 1 GM/50 ML PIGGYBACK IV ONE (19:05)
--- NOTE | 2017-09-09 19:20 | NUR ---
REPORT GIVEN TO CARMEN MARROQUIN FOR MARC.
--- NOTE | 2017-09-09 20:01 | NUR ---
BED 320-2
--- NOTE | 2017-09-09 20:10 | NUR ---
REPORT GIVEN TO LOPEZ DIALLO FOR MARC
[2017-09-09 21:00] VITALS: BP 139/68
--- NOTE | 2017-09-09 21:00 | NUR ---
TELE/RESPIRATORY THERAPIST; PT CAME FROM ER AT THIS TIME VIA GURNEY ACCOMPANIED BY ER MALE STAFFS FOR ADMISSION. PT AWAKE, ALERT AND ORIENTED X 3. DX; CHF EXACERBATION. NOTED PT WITH DISTENDED ABDOMEN WITH BS AND BOTH LOWER EXTREMITIES ARE SWOLLEN AND HAS DRESSINGS AND I ASKED THE PT IF I CAN OPEN IT AND HE SAID NO BECAUSE THEIR IS A WOUND ON THE RT FOOT AND THE WOUND CARE CENTER JUST CLEAN BOTH LEGS AND CHANGED THE DRESSING. ALSO PT WITH ABDOMINAL SURGICAL SCAR. ALSO WITH DISCOLORATION BOTH KEES. PT INSTRUCTED NOT TO GET OUT OF BED MUST CALL FOR HELP AND CALL LIGHT AND URINAL WITHIN REACH. HL ON RH # 20 INTACT. PT SAID HE VOIDED IN THE BATHROOM. PLACED ON TELEMETRY. WILL CONTINUE TO MONITOR.
[2017-09-09] MEDS ORDERED: LACTULOSE 10 G/15 ML UDC (PYXIS) PO PRN (21:30)
[2017-09-09] MEDS ORDERED: MAG HYDROX/AL HYDROX/SIMETH 30 ML UDC PO PRN (21:30)
[2017-09-09] MEDS ORDERED: Z GUARD REMEDY 2 OZ OINT TP PRN (21:30)
[2017-09-09] MEDS ORDERED: ONDANSETRON HCL/PF 4 MG/2 ML VIAL IVP PRN (21:30)
[2017-09-09] MEDS ORDERED: ACETAMINOPHEN 325 MG TABLET PO PRN (21:30)
[2017-09-09 22:00] VITALS: BP 139/68
[2017-09-09] MEDS ORDERED: TRAZODONE 50 MG TABLET PO ONE (22:00)
--- NOTE | 2017-09-09 22:35 | NUR ---
C/O PAIN OF PAIN RT LEG DUE TO NEUROPATHY WITH PAIN LEVEL OF 8 OUT OF 10. NORCO 5- 325 MG PO Q 4 PRN GIVEN.
[2017-09-09] MEDS: HYDROCODONE/APAP 5/325MG 1 EACH TABLET PO PRN (22:37)
[2017-09-10] VITALS: BP 130/66
--- NOTE | 2017-09-10 00:30 | NUR ---
PT AWAKE AT THIS TIME AND HE SAID STILL HE WANTS THE TRAZODONE. SO TRAZODONE 50 MG PO TIMES ONE GIVEN ORDERED.
[2017-09-10] MEDS ORDERED: TRAZODONE 50 MG TABLET ONE (00:31)
[2017-09-10 03:39] LABS: BASOPHILS % (AUTO) 0.6 % (0.0-2.0); EOSINOPHILS % (AUTO) 8.8 % (0.0-6.0); HEMATOCRIT 25 % (39-51); HEMOGLOBIN 8.2 g/dL (13.5-17.5); LYMPHOCYTES # (AUTO) 0.6 /CMM (0.8-4.8); LYMPHOCYTES % (AUTO) 10.4 % (20.0-44.0); MEAN CORPUSCULAR HEMOGLOBIN 29 PG (26.0-33.0); MEAN CORPUSCULAR HGB CONC 33 g/dl (31.0-36.0); MEAN CORPUSCULAR VOLUME 89 fL (80-96); MONOCYTES # (AUTO) 0.6 /CMM (0.1-1.30); MONOCYTES % (AUTO) 10.2 % (2.0-12.0); NEUTROPHILS # (AUTO) 4.3 /CMM (1.8-8.9); PLATELET COUNT (AUTO) 335 /CMM (150-450); RDW COEFFICIENT OF VARIATION 16.6 (11.5-15.0); WHITE BLOOD COUNT (AUTO) 6.1 K/uL (4.3-11.0)
[2017-09-10 03:56] LABS: ALBUMIN 2.7 g/dL (3.4-5.0); BILIRUBIN,TOTAL 0.5 mg/dL (0.2-1.0); CALCIUM, SERUM 7.8 mg/dL (8.5-10.1); CREATININE 2.1 mg/dL (0.6-1.3); MAGNESIUM 2.3 mg/dL (1.8-2.4); PHOSPHORUS 4.7 mg/dL (2.5-4.9); POTASSIUM 4.1 mmol/L (3.5-5.1); TOTAL PROTEIN, SERUM 6.8 g/dL (6.4-8.2)
[2017-09-10 04:04] LABS: THYROID STIMULATING HORMONE 4.568 uIU/mL (0.358-3.74)
--- NOTE | 2017-09-10 07:30 | NUR ---
RN OPENING NOTES PATIENT RECEIVED SLEEPING COMFORTABLY IN BED, EASILY AROUSABLE DURING CARE.ABLE TO MAKE NEEDS KNOWN RESPIRATIONS EVEN AND UNLABORED, DENIES ANY PAIN OR DISCOMFORT. IV ACCESS PATENT AND INTACT NO REDNESS OR INFILTRATION NOTED. SAFETY MEASURES IN PLACE, KEPT CLEAN DRY AND COMFORTABLE, CALL LIGHT WITHIN EASY REACH, WILL CONTINUE TO MONITOR
[2017-09-10 08:00] VITALS: BP 123/59
[2017-09-10 08:11] VITALS: BP 123/59
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
[2017-09-10] MEDS: DOCUSATE SODIUM 100 MG CAPSULE PO SCH ×2 (08:48→17:13)
[2017-09-10] MEDS: PANTOPRAZOLE 40 MG VIAL IV SCH (08:48)
[2017-09-10] MEDS ORDERED: FUROSEMIDE 40 MG/4 ML VIAL IV SCH (09:00)
[2017-09-10] MEDS ORDERED: SPIRONOLACTONE 25 MG TABLET PO SCH (09:00)
--- NOTE | 2017-09-10 09:10 | NUR ---
RN NOTES/WOUND CARE MD PER DR. NINFA MD ONLY TO CHANGE DRESSING, DRESSING TO BE CHANGED ON Wednesday08/14/17
[2017-09-10] MEDS ORDERED: LIDOCAINE HCL/PF 1% 30 ML SDV ONE (10:04)
--- NOTE | 2017-09-10 10:30 | NUR ---
RN NOTES S/P PARACENTESIS, 4200ML OF FLUID REMOVED, VSS WILL CONTINUE TO MONITOR
[2017-09-10] MEDS: SOD FERRIC GLUC 125 MG in IV NS 0.9% 100 ML IV SCH (15:38)
[2017-09-10 16:40] VITALS: BP 135/63
[2017-09-10] MEDS ORDERED: CEFTRIAXONE 1 G in IV D5W 50 ML IV SCH (17:00)
[2017-09-10] MEDS: LACTULOSE 10 G/15 ML UDC (PYXIS) PO SCH ×2 (17:12→21:30)
[2017-09-10] MEDS: FUROSEMIDE 20 MG/2 ML VIAL IV SCH (17:13)
[2017-09-10] MEDS: HYDROCODONE/APAP 5/325MG 1 EACH TABLET PO PRN (17:14)
--- NOTE | 2017-09-10 17:30 | NUR ---
RN NOTES PER DR HERNANDEZ TO SEND FLUID TO LAB , FLUID FROM PARACENTESIS TAKEN TO LAB
--- NOTE | 2017-09-10 19:25 | NUR ---
MS RN NOTES RECEIVED PT SITTING UP IN A CHAIR. AWAKE, A/O X 3, VERBALLY RESPONSIVE. BROTHER AT BED SIDE. NO SOB NOR ACUTE DISTRESS NOTED. IV SITE ON RIGHT HAND INTACT AND PATENT. DRESSING ON BILATERAL LEG INTACT AND CLEAN. NO C/O PAIN OR DISCOMFORT AT THIS TIME. ALL NEEDS ATTENDED AND MET. KEPT COMFORTABLE. SAFETY PRECAUTIONS OBSERVED. CALL LIGHT WITHIN REACH. WILL CONT TO MONITOR.
--- NOTE | 2017-09-10 19:39 | NUR ---
RN CLOSING NOTES PATIENT SLEEPING COMFORTABLY IN BED, EASILY AROUSABLE DURING CARE.ABLE TO MAKE NEEDS KNOWN RESPIRATIONS EVEN AND UNLABORED, DENIES ANY PAIN OR DISCOMFORT. IV ACCESS PATENT AND INTACT NO REDNESS OR INFILTRATION NOTED. SAFETY MEASURES IN PLACE, KEPT CLEAN DRY AND COMFORTABLE, CALL LIGHT WITHIN EASY REACH, ENDORSED TO NEXT SHIFT FOR CONTINUITY OF CARE
[2017-09-10 20:00] VITALS: BP 131/69
--- NOTE | 2017-09-10 22:20 | NUR ---
PT REFUSED LACTULOSE AT THIS TIME, PER PT HE ALREADY HAD 2 BM , RISK AND BENEFITS EXPLAINED, PT STILL REFUSED X 3. WILL CONT TO MONITOR
[2017-09-10] MEDS: ZOLPIDEM TARTRATE 5 MG TABLET PO PRN (22:26)
[2017-09-11] MEDS: LACTULOSE 10 G/15 ML UDC (PYXIS) PO SCH ×4 (03:30→21:06)
--- NOTE | 2017-09-11 04:41 | NUR ---
PT REFUSED LACTULOSE , RISK AND BENEFITS EXPLAINED, PT STILL REFUSED X 3. WILL CONT TO MONITOR
[2017-09-11 06:39] LABS: BASOPHILS % (AUTO) 0.5 % (0.0-2.0); EOSINOPHILS % (AUTO) 10.2 % (0.0-6.0); HEMATOCRIT 26 % (39-51); HEMOGLOBIN 8.5 g/dL (13.5-17.5); LYMPHOCYTES # (AUTO) 0.6 /CMM (0.8-4.8); LYMPHOCYTES % (AUTO) 8.7 % (20.0-44.0); MEAN CORPUSCULAR HEMOGLOBIN 29 PG (26.0-33.0); MEAN CORPUSCULAR HGB CONC 33 g/dl (31.0-36.0); MEAN CORPUSCULAR VOLUME 89 fL (80-96); MONOCYTES # (AUTO) 0.5 /CMM (0.1-1.30); MONOCYTES % (AUTO) 7.8 % (2.0-12.0); NEUTROPHILS # (AUTO) 4.9 /CMM (1.8-8.9); NEUTROPHILS % (AUTO) 72.8 % (43.0-81.0); PLATELET COUNT (AUTO) 346 /CMM (150-450); RDW COEFFICIENT OF VARIATION 16.8 (11.5-15.0); RED BLOOD CELL COUNT(AUTO) 2.93 MIL/uL (4.5-6.0); WHITE BLOOD COUNT (AUTO) 6.7 K/uL (4.3-11.0)
[2017-09-11 06:58] LABS: ALBUMIN 2.5 g/dL (3.4-5.0); BILIRUBIN,TOTAL 0.4 mg/dL (0.2-1.0); CALCIUM, SERUM 7.9 mg/dL (8.5-10.1); CREATININE 1.8 mg/dL (0.6-1.3); MAGNESIUM 2.2 mg/dL (1.8-2.4); PHOSPHORUS 4.1 mg/dL (2.5-4.9); POTASSIUM 4.7 mmol/L (3.5-5.1); TOTAL PROTEIN, SERUM 6.6 g/dL (6.4-8.2)
--- NOTE | 2017-09-11 06:58 | NUR ---
MS RN NOTES PT IN BED, AWAKE, A/O X 3, VERBALLY RESPONSIVE. NO SOB NOR ACUTE DISTRESS NOTED. IV SITE ON RIGHT HAND INTACT AND PATENT. DRESSING ON BILATERAL LEG INTACT AND CLEAN. NO C/O PAIN OR DISCOMFORT AT THIS TIME. ALL NEEDS ATTENDED AND MET. KEPT COMFORTABLE. SAFETY PRECAUTIONS OBSERVED. CALL LIGHT WITHIN REACH. WILL ENDORSE TO NEXT SHIFT FOR MARC.
[2017-09-11 08:00] VITALS: BP 141/76
[2017-09-11] MEDS: FUROSEMIDE 20 MG/2 ML VIAL IV SCH ×2 (08:31→17:22)
[2017-09-11] MEDS: PANTOPRAZOLE 40 MG VIAL IV SCH (08:32)
[2017-09-11] MEDS: SPIRONOLACTONE 25 MG TABLET PO SCH (08:32)
[2017-09-11] MEDS: DOCUSATE SODIUM 100 MG CAPSULE PO SCH ×2 (08:32→17:00)
[2017-09-11] MEDS ORDERED: SPIRONOLACTONE 50 MG TABLET PO SCH (09:00)
[2017-09-11] MEDS: SOD FERRIC GLUC 125 MG in IV NS 0.9% 100 ML IV SCH (14:50)
[2017-09-11 16:00] VITALS: BP 154/99
[2017-09-11] MEDS ORDERED: ALBUMIN 25% 25 GM in PREMIX 1 EA IV ONE (16:00)
--- NOTE | 2017-09-11 18:00 | NUR ---
dr. moeller, and dr. scott in to see pt.pt. stable and cooperative.dose of albumin infusing.
--- NOTE | 2017-09-11 19:00 | NUR ---
RN INITIAL NOTES: Received patient in bed, alert, oriented x 4. Brother at bedside. Not in any distress. No complaints of pain or discomfort as of this time. Albumin infusing at this time. Call bello within reach. Bed in low locked position. Patient stable as endorsed by the morning shift RN. Will continue to monitor
[2017-09-11 20:00] VITALS: BP 143/64
--- NOTE | 2017-09-11 21:06 | NUR ---
RN NOTES: Patient refused Cephulac. Explained the risks and benefits but still refused the medication
[2017-09-11] MEDS ORDERED: NITROGLYCERIN 0.4 MG/TAB BOTTLE SL PRN (21:30)
[2017-09-11] MEDS: CEFTRIAXONE 1 G in IV D5W 50 ML IV SCH (21:39)
[2017-09-11] MEDS: HYDROCODONE/APAP 5/325MG 1 EACH TABLET PO PRN (21:40)
[2017-09-11] MEDS: ZOLPIDEM TARTRATE 5 MG TABLET PO PRN (21:41)
[2017-09-11] MEDS ORDERED: DEXTROSE 50%-WATER 50 ML DISP.SYRIN IV PRN (22:30)
[2017-09-11] MEDS: INSULIN REGULAR, HUMAN 100 UNIT/ML 3 ML VIAL SQ PRN (22:35)
[2017-09-11] MEDS: BLOOD SUGAR DIAGNOSTIC 1 EACH STRIP IN SCH (22:36)
[2017-09-12] MEDS: LACTULOSE 10 G/15 ML UDC (PYXIS) PO SCH ×4 (03:13→20:51)
[2017-09-12] MEDS: BLOOD SUGAR DIAGNOSTIC 1 EACH STRIP IN SCH ×4 (06:33→22:07)
[2017-09-12] MEDS: INSULIN REGULAR, HUMAN 100 UNIT/ML 3 ML VIAL SQ PRN ×2 (06:35→17:21)
--- NOTE | 2017-09-12 07:00 | NUR ---
MSRN OPENING NOTES. PT RECEIVED A&0X3, ASLEEP AND EASILY AWOKEN. PT TOLERATING ROOM AIR AND DENIES SOB AT THIS TIME. PT REPORTS PAIN MANAGEMENT ADEQUATE A THIS TIME. PT WITH IVC AT RIGHT DMC INTACT AND SALINE FLUSH PATENT, SL. PT REQUESTED TO USE URINAL, ONE AT BEDSIDE. DRESSING TO RIGHT FOOT/LEG CLEAN AND INTACT. PT BED IN LOWEST LOCKED POSITION WI9TH HNADRAILSX2 AND CALL ROCHE WITHIN REACH. PT BRIEFED ON TODAY'S POC AND IS WITHOUT CONCERN OR COMPLAINT AT THIS TIME.
--- NOTE | 2017-09-12 07:27 | NUR ---
RN NOTES: Patient in bed, still sleeping but easily arousable. No complaints of pain or discomfort as of this moment. Patient remains stable. Not in any distress. All needs attended to. All due medications given as ordered. Will endorse MARC to AM shift RN.
[2017-09-12 08:00] VITALS: BP 142/72
[2017-09-12] MEDS ORDERED: FERROUS SULFATE (325 MG) 325 MG/TAB TABLET PO SCH (09:00)
[2017-09-12] MEDS ORDERED: FUROSEMIDE 40 MG TABLET PO SCH (09:00)
[2017-09-12] MEDS ORDERED: FENOFIBRATE NANOCRYS (145 MG) 145 MG TABLET PO SCH (09:00)
[2017-09-12] MEDS ORDERED: METFORMIN 500 MG TABLET PO SCH (09:00)
[2017-09-12] MEDS ORDERED: BLOOD SUGAR DIAGNOSTIC 1 EACH STRIP IN SCH (09:00)
[2017-09-12] MEDS: SPIRONOLACTONE 25 MG TABLET PO SCH (09:26)
[2017-09-12] MEDS: LEVOTHYROXINE SODIUM 75 MCG TABLET PO SCH (09:26)
[2017-09-12] MEDS: VIT B CMPLX 3/FA/VIT C/BIOTIN 1 TAB TABLET PO SCH (09:27)
[2017-09-12] MEDS: ALLOPURINOL 100 MG TABLET PO SCH (09:27)
[2017-09-12] MEDS: CLOPIDOGREL BISULFATE 75 MG TABLET PO SCH (09:27)
[2017-09-12] MEDS: hydrALAZINE HCL 50 MG TABLET PO SCH ×2 (09:27→17:19)
[2017-09-12] MEDS: AMLODIPINE BESYLATE 10 MG TABLET PO SCH (09:27)
[2017-09-12] MEDS: FUROSEMIDE 80 MG TABLET PO SCH (09:28)
[2017-09-12] MEDS: CARVEDILOL 12.5 MG TABLET PO SCH ×2 (09:28→17:21)
[2017-09-12] MEDS: PANTOPRAZOLE 40 MG TABLET.DR PO SCH (09:28)
[2017-09-12] MEDS: CEFTRIAXONE 1 G in IV D5W 50 ML IV SCH ×2 (09:29→20:50)
--- NOTE | 2017-09-12 10:57 | NUR ---
MSRN NOTES. OB STOOL COLLECTED AND LAB NOTIFIED.
[2017-09-12 11:42] LABS: OCCULT BLOOD STOOL NEGATIVE (NEGATIVE)
[2017-09-12] MEDS ORDERED: SOD FERRIC GLUC 125 MG in IV NS 0.9% 100 ML IV SCH (14:00)
[2017-09-12] MEDS: SOD FERRIC GLUC 125 MG in IV NS 0.9% 100 ML IV SCH (14:51)
[2017-09-12 16:09] VITALS: BP 116/61
--- NOTE | 2017-09-12 17:31 | NUR ---
MSLOPEZ NOTES. URINE SAMPLE COLLECTED AND LAB NOTIFIED.
[2017-09-12] MEDS ORDERED: ATORVASTATIN 40 MG TABLET PO SCH (18:00)
--- NOTE | 2017-09-12 18:01 | NUR ---
MSRN CLOSING NOTES. PT REMAINS A&0X3. SITTING AT EDGE OF BED WITH TRAY. PT TOLERATING ROOM AIR AND REPORTS 'NORMAL' SOB AT THIS TIME. PT WITHOUT PAIN. PT WITH IVC AT RIGHT DMC INTACT AND SL. DRESSING TO RIGHT FOOT/LEG CLEAN AND INTACT. PT BED IN LOWEST LOCKED POSITION WI9TH HNADRAILSX2 AND CALL ROCHE WITHIN REACH. ALL DAY NURSE DUTIES ATTENDED TO AND PT IS WITHOUT CONCERN OR COMPLAINT AT THIS TIME. WILL ENDORSE TO NIGHT NURSE AT BEDSIDE FOR MARC.
[2017-09-12 20:00] VITALS: BP 137/71
[2017-09-12] MEDS ORDERED: BUMETANIDE INJ 8 MG in IV NS 0.9% 48 ML IV ONE (20:00)
[2017-09-12] MEDS: HYDROCODONE/APAP 5/325MG 1 EACH TABLET PO PRN (20:05)
[2017-09-12] MEDS ORDERED: BUMETANIDE INJ 0.25 MG/ML VIAL ONE ×2 (20:20→20:22)
[2017-09-12 21:08] LABS: ALBUMIN 2.8 g/dL (3.4-5.0); BILIRUBIN,TOTAL 0.5 mg/dL (0.2-1.0); CALCIUM, SERUM 8.1 mg/dL (8.5-10.1); CREATININE 1.8 mg/dL (0.6-1.3); POTASSIUM 4.9 mmol/L (3.5-5.1)
[2017-09-12 21:09] LABS: INR 1.1 (0.87-1.13)
[2017-09-12] MEDS: TRAZODONE 50 MG TABLET PO SCH (22:07)
[2017-09-12] MEDS: INSULIN GLARGINE, 100 UNIT/ML CARTRIDGE SQ SCH (22:08)
[2017-09-12 22:39] LABS: BASOPHILS % (AUTO) 0.5 % (0.0-2.0); EOSINOPHILS % (AUTO) 7.9 % (0.0-6.0); HEMATOCRIT 25 % (39-51); LYMPHOCYTES # (AUTO) 0.6 /CMM (0.8-4.8); LYMPHOCYTES % (AUTO) 8.9 % (20.0-44.0); MEAN CORPUSCULAR HEMOGLOBIN 29 PG (26.0-33.0); MEAN CORPUSCULAR HGB CONC 32 g/dl (31.0-36.0); MEAN CORPUSCULAR VOLUME 90 fL (80-96); MONOCYTES # (AUTO) 0.6 /CMM (0.1-1.30); MONOCYTES % (AUTO) 9.4 % (2.0-12.0); NEUTROPHILS # (AUTO) 4.9 /CMM (1.8-8.9); NEUTROPHILS % (AUTO) 73.3 % (43.0-81.0); PLATELET COUNT (AUTO) 387 /CMM (150-450); RDW COEFFICIENT OF VARIATION 17.5 (11.5-15.0); RED BLOOD CELL COUNT(AUTO) 2.79 MIL/uL (4.5-6.0); WHITE BLOOD COUNT (AUTO) 6.6 K/uL (4.3-11.0)
[2017-09-13] MEDS: LACTULOSE 10 G/15 ML UDC (PYXIS) PO SCH ×4 (03:30→22:16)
--- NOTE | 2017-09-13 06:21 | NUR ---
MS RN NOTES AWAKE & RESPONSIVE. NOT IN ANY DISTRESS. NO SOB NOTED. DENIES ANY PAIN OR DISCOMFORT AT THIS TIME. WITH IV-HL PATENT & INTACT. KEPT ON NPO P MN. MONITORED ACCORDINGLY. CALL LIGHT WITHIN REACH. BED IN LOWEST POSITION. SR UP X 2 FOR SAFETY. WILL ENDORSE TO NEXT SHIFT.
[2017-09-13] MEDS: LEVOTHYROXINE SODIUM 75 MCG TABLET PO SCH (07:30)
--- NOTE | 2017-09-13 07:31 | NUR ---
MS/RN OPENING NOTE PATIENT ALERT AND ORIENTED X4. DENIES PAIN. RESPIRATION REGULAR AND UNLABORED. DENIES SOB. PATIENT IN NO APPARENT DISTRESS. RIGHT FOOT DRESSING INTACT. PER ENDORSEMENT DRESSING TO BE CHANGED BY DR OCASIO. RIGHT HAND G 20 PATENT AND SALINE LOCKED. BED LOW AND LOCKED. SIDE RAILS UP X3. CALL LIGHT WITHIN REACH. WILL CONTINUE TO MONITOR.
[2017-09-13 08:00] VITALS: BP 130/78
[2017-09-13] MEDS: CARVEDILOL 12.5 MG TABLET PO SCH ×2 (08:00→17:35)
[2017-09-13] MEDS: BLOOD SUGAR DIAGNOSTIC 1 EACH STRIP IN SCH ×4 (08:53→22:20)
[2017-09-13] MEDS: hydrALAZINE HCL 50 MG TABLET PO SCH ×2 (08:54→16:22)
[2017-09-13] MEDS: SPIRONOLACTONE 25 MG TABLET PO SCH (08:54)
[2017-09-13] MEDS: PANTOPRAZOLE 40 MG TABLET.DR PO SCH (08:55)
[2017-09-13] MEDS: FUROSEMIDE 80 MG TABLET PO SCH (08:55)
[2017-09-13] MEDS: CLOPIDOGREL BISULFATE 75 MG TABLET PO SCH (08:55)
[2017-09-13] MEDS: AMLODIPINE BESYLATE 10 MG TABLET PO SCH (08:55)
[2017-09-13] MEDS: VIT B CMPLX 3/FA/VIT C/BIOTIN 1 TAB TABLET PO SCH (08:55)
[2017-09-13] MEDS: ALLOPURINOL 100 MG TABLET PO SCH (08:56)
[2017-09-13] MEDS: CEFTRIAXONE 1 G in IV D5W 50 ML IV SCH ×2 (08:57→20:11)
[2017-09-13] MEDS ORDERED: LIDOCAINE HCL/PF 1% 30 ML SDV ONE (11:54)
--- NOTE | 2017-09-13 15:30 | NUR ---
MS/RN NOTE PARACENTESIS IS DONE AT BEDSIDE AND 2700 ML FLUID IS REMOVED. THE FLUID IS SENT TO LAB.
--- NOTE | 2017-09-13 15:35 | NUR ---
MS/RN NOTE DR SAURABH DUNLAP IS MADE AWARE OF CHEMICAL LABORATORY TECHNICIAN RECOMMENDATION ABOUT DIET ORDER AND NEW ORDER IS OBTAINED. NOTED AND CARRIED OUT.
[2017-09-13] MEDS: SOD FERRIC GLUC 125 MG in IV NS 0.9% 100 ML IV SCH (16:20)
[2017-09-13] MEDS: INSULIN REGULAR, HUMAN 100 UNIT/ML 3 ML VIAL SQ PRN ×2 (17:28→22:31)
--- NOTE | 2017-09-13 17:30 | NUR ---
MS/RN NOTE RIGHT LEG DRESSING CHANGE DONE BY DR OCASIO.
[2017-09-13 17:36] VITALS: BP 138/81
[2017-09-13 17:48] LABS: BASOPHILS # (AUTO) 0.1 /CMM (0.0-0.2); BASOPHILS % (AUTO) 0.9 % (0.0-2.0); EOSINOPHILS % (AUTO) 7.7 % (0.0-6.0); HEMATOCRIT 27 % (39-51); HEMOGLOBIN 8.9 g/dL (13.5-17.5); LYMPHOCYTES # (AUTO) 0.6 /CMM (0.8-4.8); LYMPHOCYTES % (AUTO) 9.8 % (20.0-44.0); MEAN CORPUSCULAR HEMOGLOBIN 29 PG (26.0-33.0); MEAN CORPUSCULAR HGB CONC 33 g/dl (31.0-36.0); MEAN CORPUSCULAR VOLUME 88 fL (80-96); MONOCYTES # (AUTO) 0.4 /CMM (0.1-1.30); MONOCYTES % (AUTO) 7.3 % (2.0-12.0); NEUTROPHILS # (AUTO) 4.6 /CMM (1.8-8.9); NEUTROPHILS % (AUTO) 74.3 % (43.0-81.0); PLATELET COUNT (AUTO) 437 /CMM (150-450); RDW COEFFICIENT OF VARIATION 17.1 (11.5-15.0); RED BLOOD CELL COUNT(AUTO) 3.05 MIL/uL (4.5-6.0); WHITE BLOOD COUNT (AUTO) 6.1 K/uL (4.3-11.0)
[2017-09-13 18:07] LABS: INR 1.12 (0.87-1.13)
[2017-09-13 18:12] LABS: ALBUMIN 2.8 g/dL (3.4-5.0); BILIRUBIN,TOTAL 0.4 mg/dL (0.2-1.0); CALCIUM, SERUM 8.3 mg/dL (8.5-10.1); CREATININE 1.6 mg/dL (0.6-1.3); POTASSIUM 4.4 mmol/L (3.5-5.1); TOTAL PROTEIN, SERUM 7.1 g/dL (6.4-8.2)
--- NOTE | 2017-09-13 18:32 | NUR ---
MS/RN CLOSING NOTE PATIENT ALERT AND ORIENTED X4. DENIES SOB. RESPIRATION REGULAR AND UNLABORED. DENIES PAIN. PATIENT IN NO APPARENT DISTRESS. PARACENTESIS SITE DRESSING INTACT WITH NO DRAINAGE. RIGHT HAND G 20 PATENT AND SALINE LOCKED. COMPRESSING STOCKINGS ON BLE. PATIENT CONTINENT AND SUPERVISED DURING AMBULATION. BED LOW AND LOCKED. SIDE RAILS UP X3. CALL LIGHT WITHIN REACH. WILL ENDORSE TO PRODUCTION CONSULTANT.
--- NOTE | 2017-09-13 19:27 | NUR ---
ms/rn opening notes PATIENT IN BED, RESTING COMFORTABLY IN BED, SKIN WARN TO TOUCH , ALERT, ORIENTED X3, ABLE TO VERBALIZE NEEDS, ON MS. CONTINENT WITH BRP. RIGHT FOOT OBSERVE BLE +2. , ON CARB CONTROL DIET, RIGHT HAND GAUGE 20PATENT, CALL LIGHTS WITHIN REACH, JAMAL IN LOCK POSITION. WILL MONITOR.
[2017-09-13 20:00] VITALS: BP 138/66
[2017-09-13] MEDS: TRAZODONE 50 MG TABLET PO SCH (22:17)
[2017-09-13] MEDS: INSULIN GLARGINE, 100 UNIT/ML CARTRIDGE SQ SCH (22:30)
--- NOTE | 2017-09-14 00:55 | NUR ---
MS/RN NOTES PATIENT GIVEN NORCO 5-325MG PO DUE TO REPORTED PAIN IN ABDOMEN,
[2017-09-14] MEDS: HYDROCODONE/APAP 5/325MG 1 EACH TABLET PO PRN ×2 (00:56→06:37)
[2017-09-14 01:53] VITALS: BP 138/66
[2017-09-14] MEDS: LACTULOSE 10 G/15 ML UDC (PYXIS) PO SCH ×2 (03:30→08:53)
[2017-09-14] MEDS: BLOOD SUGAR DIAGNOSTIC 1 EACH STRIP IN SCH ×2 (06:16→12:00)
--- NOTE | 2017-09-14 06:28 | NUR ---
320-2 ,S/RN NOTES PATIENT IN BED, ABLE TO SLEEP DURING THE NIGHT, MEDICATION FOR PAIN GIVEN, RESPIRATIONS EVEN AND UNLABORED, COOPERTAIVE TO CARE, REQUIRE SUPERVISION TO GO TO BATHROOM, CALL LIGHTS WITHIN REACH, PROVIDE FLUIDS, BED IN LOCK POSITION, WILL MONITOR AND ENDORSE TO AM RN FOR MARC
--- NOTE | 2017-09-14 06:38 | NUR ---
ms/rn notes patient reported/verbalized pain of 88/10in lower extremities, requested for pain medication norco 5-325 mg po, providwed some crackers, able to tolerate medication. will monitor and endorse to am rn for tawanda.
--- NOTE | 2017-09-14 07:13 | NUR ---
MS/RN OPENING NOTE PATIENT IS RECEIVED IN BED AWAKE. ALERT AND ORIENTED X4. RESPIRATION REGULAR AND UNLABORED. DENIES SOB. DENIES PAIN. ABDOMEN DISTENDED.. PARACENTESIS SITE WITH NO DRAINAGE. RIGHT HAND G 20 PATENT AND SALINE LOCKED. CONTINENT AND AMBULATES UNDER SUPERVISION. BED LOW AND LOCKED. SIDE RAILS UP X3. CALL LIGHT WITHIN REACH. WILL CONTINUE TO MONITOR.
[2017-09-14 08:00] VITALS: BP 108/55
[2017-09-14] MEDS: CARVEDILOL 12.5 MG TABLET PO SCH (08:00)
[2017-09-14] MEDS: ALLOPURINOL 100 MG TABLET PO SCH (08:54)
[2017-09-14] MEDS: CLOPIDOGREL BISULFATE 75 MG TABLET PO SCH (08:54)
[2017-09-14] MEDS: VIT B CMPLX 3/FA/VIT C/BIOTIN 1 TAB TABLET PO SCH (08:54)
[2017-09-14] MEDS: LEVOTHYROXINE SODIUM 75 MCG TABLET PO SCH (08:54)
[2017-09-14] MEDS: PANTOPRAZOLE 40 MG TABLET.DR PO SCH (08:54)
[2017-09-14] MEDS: FUROSEMIDE 80 MG TABLET PO SCH (08:55)
[2017-09-14] MEDS: hydrALAZINE HCL 50 MG TABLET PO SCH (08:56)
[2017-09-14 08:57] VITALS: BP 108/55
[2017-09-14] MEDS: AMLODIPINE BESYLATE 10 MG TABLET PO SCH (08:57)
[2017-09-14] MEDS: SPIRONOLACTONE 25 MG TABLET PO SCH (08:59)
[2017-09-14] MEDS: CEFTRIAXONE 1 G in IV D5W 50 ML IV SCH (09:13)
[2017-09-14] MEDS ORDERED: CIPR500T5 PO (10:48)
[2017-09-14] MEDS ORDERED: PANT40TA2 PO (10:48)
[2017-09-14] MEDS ORDERED: SPIR25TA PO (10:48)
--- NOTE | 2017-09-14 13:30 | NUR ---
MS/RN CLOSING NOTE PATIENT ALERT AND ORIENTED X4. DENIES SOB. RESPIRATION REGULAR AND UNLABORED. DENIES PAIN. DISCHARGE EDUCATIONS GIVEN AND THE PATIENT VERBALIZED UNDERSTANDING. REPORT GIVEN TO THE RECEIVING NURSE. PATIENT IS PICKED UP BY THE AMBULANCE. PATIENT LEAVING THE HOSPITAL IN STABLE CONDITION.
== END 2017-09-14 14:15 | DRG 432 ==
LOC: ER 16:24 → TELE 20:14 → MED 09-10 06:09
PROVIDERS: ADMIT Internal Medicine; ATTEND Internal Medicine
PROC: 0W9G3ZZ Drainage of Peritoneal Cavity, Percutaneous Approach (ICD-10-PCS; principal; 2017-09-10)
PROC: 0DB58ZX Excision of Esophagus, Via Natural or Artificial Opening Endoscopic, Diagnostic (ICD-10-PCS; 2017-09-13)
PROC: 0DB68ZX Excision of Stomach, Via Natural or Artificial Opening Endoscopic, Diagnostic (ICD-10-PCS; 2017-09-13)
PROC: 0W9G3ZZ Drainage of Peritoneal Cavity, Percutaneous Approach (ICD-10-PCS; 2017-09-13)
DX: K70.31 Alcoholic cirrhosis of liver with ascites (principal); I50.33 Acute on chronic diastolic (congestive) heart failure; I21.A1 Myocardial infarction type 2; K65.2 Spontaneous bacterial peritonitis; K29.71 Gastritis, unspecified, with bleeding; N17.0 Acute kidney failure with tubular necrosis; I85.11 Secondary esophageal varices with bleeding; E44.0 Moderate protein-calorie malnutrition; K76.6 Portal hypertension; L97.919 Non-pressure chronic ulcer of unspecified part of right lower leg with unspecified severity; I13.0 Hypertensive heart and chronic kidney disease with heart failure and stage 1 through stage 4 chronic kidney disease, or unspecified chronic kidney disease; Z86.73 Personal history of transient ischemic attack (TIA), and cerebral infarction without residual deficits; E03.9 Hypothyroidism, unspecified; I25.10 Atherosclerotic heart disease of native coronary artery without angina pectoris; E11.22 Type 2 diabetes mellitus with diabetic chronic kidney disease; E11.42 Type 2 diabetes mellitus with diabetic polyneuropathy; E78.5 Hyperlipidemia, unspecified; K59.00 Constipation, unspecified; D64.9 Anemia, unspecified; Z68.23 Body mass index [BMI] 23.0-23.9, adult; K80.20 Calculus of gallbladder without cholecystitis without obstruction; R16.2 Hepatomegaly with splenomegaly, not elsewhere classified; I87.2 Venous insufficiency (chronic) (peripheral); N18.9 Chronic kidney disease, unspecified; E61.1 Iron deficiency; J44.9 Chronic obstructive pulmonary disease, unspecified; F10.10 Alcohol abuse, uncomplicated; K72.90 Hepatic failure, unspecified without coma; E11.21 Type 2 diabetes mellitus with diabetic nephropathy; E66.01 Morbid (severe) obesity due to excess calories
CPT/HCPCS: 36415; 71045-TC; 76700-TC; 76942-TC; 80048-TC; 80053-TC; 80061-TC; 80076-TC; 81000-TC; 82040-TC; 82140-TC; 82272-TC; 82962-TC; 83540-TC; 83735-TC; 83880; 84100-TC; 84300-TC; 84443-TC; 84484-TC; 85025-TC; 85610-TC; 85730-TC; 87040-TC; 87070-TC; 87081-TC; 88305-TC; 88312-TC; 88313-TC; 88342; 89051-TC; 93307-TC; A4216; A4606; C9113; J0696; J1815; J1940; J2916; J3490; J7030; J7050; J7060; P9047; Z7610

== ENCOUNTER → 2017-09-09 | Outpatient (CLI) | payer MEDICARE, MEDICAID ==
[~2017-09-09] MED LIST changes: +AMLO10TA2 PO; -AMLO10TA6 PO; -METF-440 PO; +METF500T6 PO; +TRAZ-147 PO; -TRAZ-214 PO
== END | disposition home health service (06) ==
LOC: WOU 15:30
PROVIDERS: ATTEND Podiatrist Foot & Ankle Surgery
DX: I87.311 Chronic venous hypertension (idiopathic) with ulcer of right lower extremity (principal); L97.812 Non-pressure chronic ulcer of other part of right lower leg with fat layer exposed; Z87.891 Personal history of nicotine dependence; E11.40 Type 2 diabetes mellitus with diabetic neuropathy, unspecified; E03.9 Hypothyroidism, unspecified; I11.0 Hypertensive heart disease with heart failure; I50.9 Heart failure, unspecified; K70.30 Alcoholic cirrhosis of liver without ascites; E11.21 Type 2 diabetes mellitus with diabetic nephropathy
CPT/HCPCS: 11042; A6402; Z7610

== ENCOUNTER 2019-06-28 10:52 | Emergency (ER) | payer MEDICARE, OTHER ==
[~2019-06-28] VITALS: Ht 175.3 cm; Wt 97.5 kg
[~2019-06-28 10:52] MED LIST changes: -AMLO10TA2 PO; +AMLO10TA7 PO; +CIPR500T5 PO; +FENO145T21 PO; -FENO145T35 PO; +METF-440 PO; -METF500T6 PO; +PANT40TA2 PO; +SPIR25TA PO; -TRAZ-147 PO; +TRAZ-257 PO
--- NOTE | 2019-06-28 11:10 | NUR ---
PT BIB SELF SENT HERE BY Juan BO FOR PARACENTESIS, PT IS AAXO4, NOT IN RESPIRATORY DISTRESS, HOOKED TO MONITOR, KEPT RESTED AND COMFORTABLE, WILL CONTINUE TO MONITOR.
--- NOTE | 2019-06-28 11:15 | NUR ---
SEEN AND EXAMINED BY .
--- NOTE | 2019-06-28 11:20 | NUR ---
IV LINE ESTABLISHED, BLOOD DRAWN AND SENT TO LAB.
--- NOTE | 2019-06-28 11:25 | NUR ---
TECH AT BEDSIDE FOR US.
[2019-06-28 11:32] LABS: BASOPHILS # (AUTO) 0.1 /CMM (0.0-0.2); BASOPHILS % (AUTO) 1.3 % (0.0-2.0); EOSINOPHILS % (AUTO) 5.1 % (0.0-6.0); HEMATOCRIT 38 % (39-51); LYMPHOCYTES # (AUTO) 0.6 /CMM (0.8-4.8); LYMPHOCYTES % (AUTO) 11.3 % (20.0-44.0); MEAN CORPUSCULAR HGB CONC 34 g/dl (31.0-36.0); MEAN CORPUSCULAR VOLUME 95 fL (80-96); MONOCYTES # (AUTO) 0.5 /CMM (0.1-1.30); MONOCYTES % (AUTO) 10.2 % (2.0-12.0); NEUTROPHILS # (AUTO) 3.7 /CMM (1.8-8.9); NEUTROPHILS % (AUTO) 72.1 % (43.0-81.0); PLATELET COUNT (AUTO) 176 /CMM (150-450); RED BLOOD CELL COUNT(AUTO) 3.99 MIL/uL (4.5-6.0); WHITE BLOOD COUNT (AUTO) 5.1 K/uL (4.3-11.0)
--- NOTE | 2019-06-28 11:36 | NUR ---
PUBLICATIONS DESIGNER AT BEDSIDE FOR XRAY.
[2019-06-28 11:37] LABS: CALCIUM, SERUM 8.1 mg/dL (8.5-10.1); CREATININE 2.9 mg/dL (0.6-1.3); POTASSIUM 4.2 mmol/L (3.5-5.1)
[2019-06-28 11:49] LABS: ALBUMIN 3.7 g/dL (3.4-5.0); BILIRUBIN,DIRECT 0.2 mg/dL (0.0-0.2); BILIRUBIN,TOTAL 0.7 mg/dL (0.2-1.0); TOTAL PROTEIN, SERUM 7.1 g/dL (6.4-8.2)
[2019-06-28 12:18] VITALS: BP 116/74
--- NOTE | 2019-06-28 12:33 | NUR ---
IV removed. Catheter intact and site benign. Pressure and 4x4 applied to site. No bleeding noted. Patient given written and verbal discharge instructions. Patient verbalizes understanding of instructions. Patient is ambulatory with steady gait. Refuses offer of long term placement. Patient given list of available shelters in surrounding area.
== END 2019-06-28 12:35 | disposition home or self-care (01) ==
LOC: ER 10:52
DX: R60.1 Generalized edema (principal); I13.2 Hypertensive heart and chronic kidney disease with heart failure and with stage 5 chronic kidney disease, or end stage renal disease; E11.22 Type 2 diabetes mellitus with diabetic chronic kidney disease; E11.40 Type 2 diabetes mellitus with diabetic neuropathy, unspecified; N18.6 End stage renal disease; I50.9 Heart failure, unspecified; Z99.2 Dependence on renal dialysis; Z86.73 Personal history of transient ischemic attack (TIA), and cerebral infarction without residual deficits; Z79.899 Other long term (current) drug therapy; Z79.84 Long term (current) use of oral hypoglycemic drugs; Z79.4 Long term (current) use of insulin
CPT/HCPCS: 36415; 71045-TC; 76705-TC; 80048-TC; 80076-TC; 83880; 85025-TC; 85730-TC